=== PATIENT | male | born 1950 | race Caucasian/White ===

== ENCOUNTER → 2019-01-26 | Outpatient (CLI) | payer MEDICARE ==
[2019-01-26 12:29] LABS: BUN 21 mg/dl (7-24); CHLORIDE 108 mmol/L (98-107); CHOLESTEROL 141 mg/dL (<200); CREATININE 1.11 mg/dL (0.70-1.30); HDL CHOLESTEROL 71 mg/dl (40-60); LDL CHOLESTEROL 52 mg/dL (9-159); POTASSIUM 3.8 mmol/L (3.5-5.1); SODIUM 143 mmol/L (136-145); TRIGLYCERIDES 90 mg/dl (<150); VLDL CHOLESTEROL 18 mg/dL (6-40)
== END | disposition home or self-care (01) ==
LOC: LAB 11:07
PROVIDERS: Family Medicine
DX: E11.9 Type 2 diabetes mellitus without complications (principal); E78.2 Mixed hyperlipidemia; C61 Malignant neoplasm of prostate; I10 Essential (primary) hypertension

== ENCOUNTER → 2020-06-05 | Outpatient (CLI) | payer MEDICARE ==
[2020-06-05 12:02] LABS: BUN 20 mg/dl (7-24); CHLORIDE 109 mmol/L (98-107); CHOLESTEROL 140 mg/dL (<200); CREATININE 1.19 mg/dL (0.70-1.30); HDL CHOLESTEROL 76 mg/dl (40-60); LDL CHOLESTEROL 48 mg/dL (9-159); POTASSIUM 3.4 mmol/L (3.5-5.1); SODIUM 143 mmol/L (136-145); TRIGLYCERIDES 78 mg/dl (<150); VLDL CHOLESTEROL 16 mg/dL (6-40)
== END | disposition home or self-care (01) ==
LOC: LAB 10:32
PROVIDERS: ATTEND Family Medicine
DX: C61 Malignant neoplasm of prostate (principal); E78.2 Mixed hyperlipidemia; E11.9 Type 2 diabetes mellitus without complications

== ENCOUNTER → 2021-07-23 | Outpatient (CLI) | payer MEDICARE ==
[2021-07-23 12:16] LABS: BASO % 0.8 % (0.0-1.0); EOS # 0.2 10*3/uL (0.0-0.4); EOS % 3.8 % (1.0-4.0); LYMPH # 1.1 10*3/uL (1.3-4.4); LYMPH % 22.5 % (27.0-41.0); MEAN CELL VOLUME 90.7 fl (80.0-94.0); MEAN CORPUSCULAR HGB CONC 33.1 g/dl (33.0-37.0); MEAN PLATELET VOLUME 11.3 fl (9.6-12.3); MONO # 0.4 10*3/uL (0.1-1.0); MONO % 8.7 % (3.0-9.0); PLATELET COUNT AUTOMATED 143 10*3/uL (130-400); RED BLOOD COUNT 4.63 10*6/uL (4.50-5.90); RED CELL DISTRI WIDTH 13.2 % (0-14.5); WHITE BLOOD COUNT 4.7 10*3/uL (4.8-10.8)
[2021-07-23 12:32] LABS: BUN 21 mg/dl (7-24); CHLORIDE 106 mmol/L (98-107); CHOLESTEROL 124 mg/dL (<200); CREATININE 1.22 mg/dL (0.70-1.30); POTASSIUM 3.7 mmol/L (3.5-5.1); SODIUM 141 mmol/L (136-145); TRIGLYCERIDES 82 mg/dl (<150)
[2021-07-23 12:41] LABS: LDL CHOLESTEROL 34 mg/dL (9-159)
== END | disposition home or self-care (01) ==
LOC: LAB 11:57
PROVIDERS: ATTEND Family Medicine
DX: E11.9 Type 2 diabetes mellitus without complications (principal); C61 Malignant neoplasm of prostate; E70.0 Classical phenylketonuria

== ENCOUNTER → 2022-07-29 | Outpatient (CLI) | payer MEDICARE ==
[2022-07-29 13:20] LABS: BUN 16 mg/dl (9-23); CHLORIDE 105 mmol/L (98-107); CHOLESTEROL 125 mg/dL (<200); LDL CHOLESTEROL 41 mg/dL (9-159); THYROID STIM HORMONE (HS) 2.835 uIU/ml (0.550-4.780); TRIGLYCERIDES 68 mg/dl (<150)
== END | disposition home or self-care (01) ==
LOC: LAB 12:27
PROVIDERS: ATTEND Family Medicine
DX: C61 Malignant neoplasm of prostate (principal); E11.9 Type 2 diabetes mellitus without complications; I10 Essential (primary) hypertension

== ENCOUNTER 2023-05-04 19:44 | Emergency (ER) | payer MEDICARE ==
[~2023-05-04] VITALS: Ht 180.3 cm; Wt 65.8 kg
[2023-05-04 19:56] VITALS: BP 141/70
[2023-05-04] MEDS ORDERED: Tdap Vaccine 0.5 ML SYR (Adult Vaccine) IM ONE (20:25)
[2023-05-04] MEDS ORDERED: Bacitracin Zinc 14 GM TUBE T ONE (20:25)
[2023-05-04] MEDS ORDERED: CEPHALEXIN500 M1 PO (21:00)
[2023-05-04] MEDS ORDERED: ACETAMINOPHEN 325 MG TAB PO ONE (21:05)
[2023-05-04] MEDS ORDERED: CEPHALEXIN 500 MG CAP PO ONE (21:05)
== END 2023-05-04 21:26 | disposition home or self-care (01) ==
LOC: ED 19:44
DX: S40.021A Contusion of right upper arm, initial encounter (principal); S50.811A Abrasion of right forearm, initial encounter; Z91.041 Radiographic dye allergy status; Z91.040 Latex allergy status; W18.09XA Striking against other object with subsequent fall, initial encounter; Y93.89 Activity, other specified; Y92.039 Unspecified place in apartment as the place of occurrence of the external cause; Y99.8 Other external cause status

== ENCOUNTER → 2023-07-05 | Outpatient (CLI) | payer MEDICARE, MEDICAID ==
[~2023-07-05] MED LIST: CEPHALEXIN500 M1 PO
[2023-07-05 12:52] LABS: BUN 22 mg/dl (9-23); CHLORIDE 105 mmol/L (98-107); CHOLESTEROL 161 mg/dL (<200); LDL CHOLESTEROL 74 mg/dL (9-159); POTASSIUM 3.6 mmol/L (3.4-5.1); TRIGLYCERIDES 61 mg/dl (<150)
== END | disposition home or self-care (01) ==
LOC: LAB 11:54
PROVIDERS: ATTEND Family Medicine
DX: E11.9 Type 2 diabetes mellitus without complications (principal); I10 Essential (primary) hypertension; C61 Malignant neoplasm of prostate

== ENCOUNTER 2024-03-02 14:39 | Emergency (ER) | payer MEDICARE, MEDICAID ==
[~2024-03-02] VITALS: Ht 180.3 cm
[2024-03-02 15:03] VITALS: BP 131/75
[2024-03-02] MEDS ORDERED: ZESTORETIC 10-1 EACH PO (15:14)
[2024-03-02] MEDS ORDERED: METFORMIN HYDR500 MG PO ×2 (15:14→15:21)
[2024-03-02] MEDS ORDERED: POTASSIUM CHLO20 ME4 PO (15:14)
[2024-03-02] MEDS ORDERED: SIMVASTATIN40 MG PO ×2 (15:14→15:21)
[2024-03-02] MEDS ORDERED: POTASSIUM CHLO20 ME3 PO (15:21)
[2024-03-02] MEDS ORDERED: LISINOPRIL-HCT1 EACH PO (15:21)
== END 2024-03-02 15:22 | disposition home or self-care (01) ==
LOC: ED 14:39
DX: Z76.0 Encounter for issue of repeat prescription (principal); I10 Essential (primary) hypertension; E11.9 Type 2 diabetes mellitus without complications; E78.5 Hyperlipidemia, unspecified; Z91.041 Radiographic dye allergy status; Z91.040 Latex allergy status

== ENCOUNTER 2024-08-23 17:46 | Inpatient (IN) | payer MEDICARE, MEDICAID ==
[~2024-08-23] VITALS: Ht 177.8 cm; Wt 46.0 kg
[~2024-08-23 17:46] MED LIST changes: +LACTULOSE10 GM/151 PO; +LISINOPRIL-HCT1 EACH PO; +LUBIPROSTONE24 MCG PO; +METFORMIN HYDR500 MG PO; +POTASSIUM CHLO20 ME3 PO; +POTASSIUM CHLO20 ME4 PO; +SIMVASTATIN40 MG PO; +VITAMIN B121000 MC3 PO; +VITAMIN D31250 MC2 PO; +ZESTORETIC 10-1 EACH PO
[2024-08-23 20:45] VITALS: BP 93/63
[2024-08-23] MEDS ORDERED: ACETAMINOPHEN 325 MG TAB PO PRN (21:40)
[2024-08-23] MEDS ORDERED: MG-AL HYDROXIDE/SIMETICONE 30 ML UDC PO PRN (21:40)
[2024-08-23] MEDS ORDERED: Menthol/Zinc Oxide 4 GM THIN T PRN (21:45)
[2024-08-23] MEDS ORDERED: LORazepam 1 MG TAB PO PRN (22:00)
[2024-08-23] MEDS ORDERED: Mirtazapine 15 MG TAB PO SCH (22:00)
[2024-08-23] MEDS ORDERED: hydrOXYzine hydrochloride 50 MG/ML VIAL IM PRN (22:05)
[2024-08-24 06:39] LABS: BASO # 0.0 10*3/uL (0.0-0.1); BASO % 0.2 % (0.0-1.0); EOS # 0.0 10*3/uL (0.0-0.4); EOS % 0.7 % (1.0-4.0); MEAN CELL VOLUME 94.8 fl (80.0-94.0); MEAN CORPUSCULAR HGB 31.7 pg (27.0-31.0); MEAN PLATELET VOLUME 11.6 fl (9.6-12.3); MONO # 0.4 10*3/uL (0.1-1.0); MONO % 7.1 % (3.0-9.0); NEUT # 5.0 10*3/uL (2.3-7.9); NEUT % 82.7 % (47.0-73.0); NUCLEATED RED BLOOD CELL 0.0 % (0.0-0.0); NUCLEATED RED BLOOD CELL 0.0 10*3/uL (0.0-0.0); PLATELET COUNT AUTOMATED 144 10*3/uL (130-400); RED CELL DISTRI WIDTH 13.2 % (0-14.5)
[2024-08-24 07:36] LABS: BUN 36 mg/dl (9-23); LDL CHOLESTEROL 160 mg/dL (9-159); SGPT/ALT 13 U/L (5-49)
[2024-08-24 08:00] VITALS: BP 113/67
[2024-08-24 08:19] LABS: VITAMIN D, 25-HYDROXY 20.3 ng/mL (30-100)
[2024-08-24] MEDS ORDERED: ERGOCALCIFEROL 50,000 IU CAP (1.25 MG) PO SCH (09:00)
[2024-08-24] MEDS ORDERED: LACTULOSE 20 GM/30 ML UDC PO SCH (10:00)
[2024-08-24] MEDS ORDERED: CYANOCOBALAMIN 500 MCG TAB PO SCH (10:00)
[2024-08-24 20:00] VITALS: BP 102/59
[2024-08-24] MEDS ORDERED: SIMVASTATIN 20 MG TAB PO SCH (22:00)
[2024-08-25] MEDS ORDERED: FOAM BANDAGE 1 EACH BANDAGE T ONE (02:26)
[2024-08-25 08:00] VITALS: BP 109/66
[2024-08-25] MEDS ORDERED: Rivastigmine Tartrate 4.6 MG/24 HR PATCH T SCH (09:00)
[2024-08-25] MEDS ORDERED: Vitamin D 1,000 IU TAB (25 MCG) PO SCH (09:00)
[2024-08-25 20:00] VITALS: BP 107/61
[2024-08-26 08:00] VITALS: BP 112/59
[2024-08-26 20:00] VITALS: BP 109/60
[2024-08-27 06:37] LABS: BASO # 0.0 10*3/uL (0.0-0.1); BASO % 0.5 % (0.0-1.0); EOS # 0.1 10*3/uL (0.0-0.4); EOS % 1.8 % (1.0-4.0); MEAN CELL VOLUME 97.5 fl (80.0-94.0); MEAN CORPUSCULAR HGB 32.1 pg (27.0-31.0); MEAN PLATELET VOLUME 12.2 fl (9.6-12.3); MONO # 0.7 10*3/uL (0.1-1.0); MONO % 10.0 % (3.0-9.0); NEUT # 4.5 10*3/uL (2.3-7.9); NEUT % 68.2 % (47.0-73.0); NUCLEATED RED BLOOD CELL 0.0 % (0.0-0.0); NUCLEATED RED BLOOD CELL 0.0 10*3/uL (0.0-0.0); PLATELET COUNT AUTOMATED 104 10*3/uL (130-400); RED CELL DISTRI WIDTH 13.2 % (0-14.5)
[2024-08-27 06:55] LABS: BUN 27 mg/dl (9-23); SGPT/ALT 23 U/L (5-49)
[2024-08-27 09:40] VITALS: BP 97/50
[2024-08-27] MEDS ORDERED: BISACODYL 10 MG SUPP R ONE (09:50)
[2024-08-27 20:00] VITALS: BP 113/69
[2024-08-28] MEDS ORDERED: Na Phos, Dibasic/Na Phos, Mo 1 EA BOT R ONE (07:55)
[2024-08-28 08:00] VITALS: BP 123/75
[2024-08-28 20:00] VITALS: BP 110/62
[2024-08-29 08:00] VITALS: BP 102/51
[2024-08-29] MEDS ORDERED: Rivastigmine Tartrate 9.5 MG/24 HR PATCH T SCH (09:00)
[2024-08-29 20:00] VITALS: BP 101/56
[2024-08-30 08:35] VITALS: BP 102/78
[2024-08-30 20:00] VITALS: BP 102/51
[2024-08-31 08:54] VITALS: BP 118/61
[2024-08-31 20:00] VITALS: BP 115/65
[2024-09-01 08:00] VITALS: BP 106/61
[2024-09-01 08:07] LABS: BASO # 0.0 10*3/uL (0.0-0.1); BASO % 0.6 % (0.0-1.0); EOS # 0.1 10*3/uL (0.0-0.4); EOS % 1.9 % (1.0-4.0); MEAN CELL VOLUME 96.8 fl (80.0-94.0); MEAN CORPUSCULAR HGB 32.1 pg (27.0-31.0); MEAN PLATELET VOLUME 9.7 fl (9.6-12.3); MONO # 0.7 10*3/uL (0.1-1.0); MONO % 15.5 % (3.0-9.0); NEUT # 2.7 10*3/uL (2.3-7.9); NEUT % 57.0 % (47.0-73.0); NUCLEATED RED BLOOD CELL 0.0 % (0.0-0.0); NUCLEATED RED BLOOD CELL 0.0 10*3/uL (0.0-0.0); PLATELET COUNT AUTOMATED 156 10*3/uL (130-400); RED CELL DISTRI WIDTH 13.5 % (0-14.5)
[2024-09-01 08:38] LABS: BUN 18 mg/dl (9-23); SGPT/ALT 29 U/L (5-49)
[2024-09-01 20:00] VITALS: BP 124/70
[2024-09-02 08:28] VITALS: BP 116/59
[2024-09-02 20:00] VITALS: BP 129/84
[2024-09-03 07:50] VITALS: BP 130/69
[2024-09-03] MEDS ORDERED: RIVASTIGMINE 13.3 MG/24 HR TDM T SCH (09:00)
[2024-09-03 20:00] VITALS: BP 143/56
[2024-09-04 08:00] VITALS: BP 134/77
[2024-09-04 20:00] VITALS: BP 131/59
[2024-09-05 08:00] VITALS: BP 123/76
[2024-09-05] MEDS ORDERED: MIRTAZAPINE15 M1 PO (09:41)
[2024-09-05] MEDS ORDERED: RIVASTIGMINE1 EAC2 T (09:41)
[2024-09-05] MEDS ORDERED: Vitamin D (1,000 UNI PO ×2 (09:41→10:00)
[2024-09-05] MEDS ORDERED: PHARMASSURE V500 MCG PO (09:41)
[2024-09-05] MEDS ORDERED: LACTULOSE10 GM/151 PO (10:00)
== END 2024-09-05 13:10 | disposition home health service (06) | DRG 885 ==
LOC: 3N 17:46
PROVIDERS: Counselor Professional; ADMIT Psychiatry & Neurology Psychiatry; ATTEND Psychiatry & Neurology Psychiatry
PROC: GZHZZZZ Group Psychotherapy (ICD-10-PCS; principal; 2024-08-25)
PROC: GZ56ZZZ Individual Psychotherapy, Supportive (ICD-10-PCS; 2024-08-25)
DX: F33.2 Major depressive disorder, recurrent severe without psychotic features (principal); E43 Unspecified severe protein-calorie malnutrition; E87.0 Hyperosmolality and hypernatremia; Z68.1 Body mass index [BMI] 19.9 or less, adult; F02.83 Dementia in other diseases classified elsewhere, unspecified severity, with mood disturbance; F02.818 Dementia in other diseases classified elsewhere, unspecified severity, with other behavioral disturbance; F02.84 Dementia in other diseases classified elsewhere, unspecified severity, with anxiety; I95.9 Hypotension, unspecified; E53.8 Deficiency of other specified B group vitamins; R62.7 Adult failure to thrive; E55.9 Vitamin D deficiency, unspecified; E87.6 Hypokalemia; R00.1 Bradycardia, unspecified; L89.151 Pressure ulcer of sacral region, stage 1; I10 Essential (primary) hypertension; G30.9 Alzheimer's disease, unspecified; E78.5 Hyperlipidemia, unspecified; E03.9 Hypothyroidism, unspecified; F17.210 Nicotine dependence, cigarettes, uncomplicated; E11.9 Type 2 diabetes mellitus without complications; Z79.899 Other long term (current) drug therapy; Z79.01 Long term (current) use of anticoagulants; Z88.8 Allergy status to other drugs, medicaments and biological substances; Z79.2 Long term (current) use of antibiotics; Z78.9 Other specified health status

== ENCOUNTER 2024-11-11 14:51 | Inpatient (IN) | payer MEDICARE, MEDICAID ==
[~2024-11-11] VITALS: Ht 180.3 cm; Wt 66.7 kg
[~2024-11-11 14:51] MED LIST changes: +MIRTAZAPINE15 M1 PO; +PHARMASSURE V500 MCG PO; +RIVASTIGMINE1 EAC2 T; +Vitamin D (1,000 UNI PO
[2024-11-11 15:02] VITALS: BP 121/63
[2024-11-11] MEDS ORDERED: SODIUM CHLORIDE 0.9% 1,000 ML IV ONE (15:15)
[2024-11-11 15:19] LABS: BASO # 0.0 10*3/uL (0.0-0.1); BASO % 0.8 % (0.0-1.0); EOS # 0.1 10*3/uL (0.0-0.4); EOS % 1.8 % (1.0-4.0); MEAN CELL VOLUME 100.5 fl (80.0-94.0); MEAN CORPUSCULAR HGB 31.8 pg (27.0-31.0); MEAN PLATELET VOLUME 10.2 fl (9.6-12.3); MONO # 0.6 10*3/uL (0.1-1.0); MONO % 12.0 % (3.0-9.0); NEUT # 3.1 10*3/uL (2.3-7.9); NEUT % 61.8 % (47.0-73.0); NUCLEATED RED BLOOD CELL 0.0 % (0.0-0.0); NUCLEATED RED BLOOD CELL 0.0 10*3/uL (0.0-0.0); PLATELET COUNT AUTOMATED 150 10*3/uL (130-400); RED CELL DISTRI WIDTH 13.5 % (0-14.5)
[2024-11-11 15:39] LABS: BUN 32 mg/dl (9-23)
[2024-11-11] MEDS ORDERED: ceFAZolin sodium/sodium chlor 10 ML IV ONE (16:00)
[2024-11-11] MEDS ORDERED: BISACODYL 10 MG SUPP R PRN (17:20)
[2024-11-11] MEDS ORDERED: Ondansetron Hydrochloride 4 MG/2 ML VIAL IV PRN (17:20)
[2024-11-11] MEDS ORDERED: Acetaminophen/Hydrocodone 5 MG/325 MG TABLET PO PRN (17:20)
[2024-11-11] MEDS ORDERED: ACETAMINOPHEN 325 MG TAB PO PRN (17:20)
[2024-11-11] MEDS ORDERED: ACETAMINOPHEN 650 MG SUPP R PRN (17:20)
[2024-11-11] MEDS ORDERED: BISACODYL 5 MG TAB PO PRN (17:20)
[2024-11-11] MEDS ORDERED: TEMAZEPAM 15 MG CAP PO PRN (17:20)
[2024-11-11 17:50] VITALS: BP 127/63
[2024-11-11] MEDS ORDERED: BARIUM SULFATE 2% 450 ML BOT PO SCH (18:20)
[2024-11-11 20:00] VITALS: BP 131/54
[2024-11-12] VITALS: BP 107/57
[2024-11-12] MEDS ORDERED: BARIUM SULFATE 2% 450 ML BOT PO SCH (05:00)
[2024-11-12 06:42] LABS: BASO # 0.0 10*3/uL (0.0-0.1); BASO % 0.4 % (0.0-1.0); EOS # 0.1 10*3/uL (0.0-0.4); EOS % 1.1 % (1.0-4.0); MEAN CELL VOLUME 99.0 fl (80.0-94.0); MEAN CORPUSCULAR HGB 31.3 pg (27.0-31.0); MEAN PLATELET VOLUME 11.3 fl (9.6-12.3); MONO # 0.5 10*3/uL (0.1-1.0); MONO % 9.7 % (3.0-9.0); NEUT # 3.8 10*3/uL (2.3-7.9); NEUT % 71.2 % (47.0-73.0); NUCLEATED RED BLOOD CELL 0.0 % (0.0-0.0); NUCLEATED RED BLOOD CELL 0.0 10*3/uL (0.0-0.0); PLATELET COUNT AUTOMATED 155 10*3/uL (130-400); RED CELL DISTRI WIDTH 13.4 % (0-14.5)
[2024-11-12 07:06] LABS: BUN 26 mg/dl (9-23); FREE T4 1.12 ng/dl (0.89-1.76); LDL CHOLESTEROL 76 mg/dL (9-159); SGPT/ALT 54 U/L (5-49)
[2024-11-12 07:56] LABS: VITAMIN D, 25-HYDROXY 32.6 ng/mL (30-100)
[2024-11-12 08:00] VITALS: BP 123/64
[2024-11-12] MEDS ORDERED: FOAM BANDAGE HEEL T ONE (08:08)
[2024-11-12] MEDS ORDERED: FOAM BANDAGE 1 EACH BANDAGE T ONE (08:08)
[2024-11-12] MEDS ORDERED: HEEL PROTECTOR DEVICE ONE (08:09)
[2024-11-12] MEDS ORDERED: ASPIRIN81 M3 PO (09:46)
[2024-11-12 12:00] VITALS: BP 102/58
[2024-11-12 12:14] LABS: BILIRUBIN Negative (Negative); BLOOD Negative (Negative); CLARITY Clear (Clear); COLOR Yellow (Yellow); KETONE Negative (Negative); LEUKO ESTERASE Trace (Negative); NITRITE Negative (Negative); PH 7.0 (4.5-8.0); SPECIFIC GRAVITY 1.020 (1.001-1.030); UROBILINOGEN 1.0 E.U./dl (0.0-1.0)
[2024-11-12 12:35] LABS: BACTERIA TRACE; EPITHELIAL CELLS 0-2; RBC 0-2 rbc/hpf (0-2)
[2024-11-12 16:00] VITALS: BP 117/56
[2024-11-12 20:00] VITALS: BP 94/53
[2024-11-13] VITALS: BP 94/54
[2024-11-13 05:54] LABS: BUN 24 mg/dl (9-23)
[2024-11-13 05:58] LABS: BASO # 0.0 10*3/uL (0.0-0.1); BASO % 0.4 % (0.0-1.0); EOS # 0.1 10*3/uL (0.0-0.4); EOS % 1.2 % (1.0-4.0); MEAN CELL VOLUME 97.8 fl (80.0-94.0); MEAN CORPUSCULAR HGB 31.8 pg (27.0-31.0); MEAN PLATELET VOLUME 11.2 fl (9.6-12.3); MONO # 0.4 10*3/uL (0.1-1.0); MONO % 7.8 % (3.0-9.0); NEUT # 3.6 10*3/uL (2.3-7.9); NEUT % 73.2 % (47.0-73.0); NUCLEATED RED BLOOD CELL 0.0 % (0.0-0.0); NUCLEATED RED BLOOD CELL 0.0 10*3/uL (0.0-0.0); PLATELET COUNT AUTOMATED 144 10*3/uL (130-400); RED CELL DISTRI WIDTH 13.4 % (0-14.5)
[2024-11-13] MEDS ORDERED: SODIUM CHLORIDE 0.9% 1,000 ML IV ONE (07:30)
[2024-11-13 08:00] VITALS: BP 124/67
[2024-11-13] MEDS ORDERED: ASPIRIN, CHEWABLE 81 MG TAB PO SCH (10:00)
[2024-11-13] MEDS ORDERED: CYANOCOBALAMIN 500 MCG TAB PO SCH (10:00)
[2024-11-13] MEDS ORDERED: CEPHALEXIN500 M1 PO (11:55)
[2024-11-13 12:00] VITALS: BP 118/63
[2024-11-13] MEDS ORDERED: AMMONIUM LACTATE 12% LOTION T SCH (22:00)
== END 2024-11-13 16:00 | disposition home health service (06) | DRG 602 ==
LOC: ED 14:51 → 4E 16:16 → EDHOLD 16:16 → 4E 16:46
PROVIDERS: Emergency Medicine; ADMIT Internal Medicine; ATTEND Internal Medicine
DX: L03.116 Cellulitis of left lower limb (principal); E43 Unspecified severe protein-calorie malnutrition; J90 Pleural effusion, not elsewhere classified; L03.115 Cellulitis of right lower limb; G30.9 Alzheimer's disease, unspecified; F02.80 Dementia in other diseases classified elsewhere, unspecified severity, without behavioral disturbance, psychotic disturbance, mood disturbance, and anxiety; E11.65 Type 2 diabetes mellitus with hyperglycemia; D53.9 Nutritional anemia, unspecified; E03.9 Hypothyroidism, unspecified; R62.7 Adult failure to thrive; E78.5 Hyperlipidemia, unspecified; I10 Essential (primary) hypertension; Z78.9 Other specified health status; Z88.0 Allergy status to penicillin; Z88.8 Allergy status to other drugs, medicaments and biological substances; Z79.4 Long term (current) use of insulin; Z68.20 Body mass index [BMI] 20.0-20.9, adult

== ENCOUNTER 2024-12-06 18:04 | Emergency (ER) | payer MEDICARE, MEDICAID ==
[~2024-12-06] VITALS: Ht 177.8 cm; Wt 65.8 kg
[~2024-12-06 18:04] MED LIST changes: +ASPIRIN81 M3 PO
[2024-12-06 18:06] VITALS: BP 158/83
[2024-12-06 18:48] LABS: BASO # 0.0 10*3/uL (0.0-0.1); BASO % 0.8 % (0.0-1.0); EOS # 0.0 10*3/uL (0.0-0.4); EOS % 0.8 % (1.0-4.0); MEAN CELL VOLUME 101.3 fl (80.0-94.0); MEAN CORPUSCULAR HGB 31.6 pg (27.0-31.0); MEAN PLATELET VOLUME 10.6 fl (9.6-12.3); MONO # 0.4 10*3/uL (0.1-1.0); MONO % 10.8 % (3.0-9.0); NEUT # 2.5 10*3/uL (2.3-7.9); NEUT % 64.4 % (47.0-73.0); NUCLEATED RED BLOOD CELL 0.0 % (0.0-0.0); NUCLEATED RED BLOOD CELL 0.0 10*3/uL (0.0-0.0); PLATELET COUNT AUTOMATED 131 10*3/uL (130-400); RED CELL DISTRI WIDTH 13.3 % (0-14.5)
[2024-12-06 19:13] LABS: BUN 31 mg/dl (9-23)
[2024-12-06 19:31] LABS: ETHYL ALCOHOL < 3.0 mg/dl (<3)
[2024-12-06 19:33] LABS: BILIRUBIN Negative (Negative); BLOOD Negative (Negative); CLARITY Clear (Clear); COLOR Yellow (Yellow); KETONE Negative (Negative); LEUKO ESTERASE Negative (Negative); NITRITE Negative (Negative); PH 5.0 (4.5-8.0); SPECIFIC GRAVITY 1.015 (1.001-1.030); UROBILINOGEN 0.2 E.U./dl (0.0-1.0)
[2024-12-06 19:52] LABS: URINE AMPHETAMINES Negative (1000ng/ml); URINE BARBITURATES Negative (200ng/ml); URINE BENZODIAZEPINES Negative (200ng/ml); URINE CANNABINOIDS (THC) Negative (50ng/ml); URINE COCAINE Negative (300ng/ml); URINE METHADONE Negative (300ng/ml); URINE OPIATES Negative (300ng/ml); URINE PHENCYCLIDINE Negative (25ng/ml)
[2024-12-06 20:31] LABS: MUCOUS 1+
== END 2024-12-06 23:56 ==
LOC: ED 18:04 → EDHOLD 18:25 → ED 18:25
PROVIDERS: Emergency Medicine
DX: R62.7 Adult failure to thrive (principal); N17.9 Acute kidney failure, unspecified; F32.9 Major depressive disorder, single episode, unspecified; E87.0 Hyperosmolality and hypernatremia; D61.818 Other pancytopenia; F03.90 Unspecified dementia, unspecified severity, without behavioral disturbance, psychotic disturbance, mood disturbance, and anxiety; E11.9 Type 2 diabetes mellitus without complications; I10 Essential (primary) hypertension; E78.5 Hyperlipidemia, unspecified; Z88.0 Allergy status to penicillin; Z91.041 Radiographic dye allergy status; Z79.82 Long term (current) use of aspirin; Z79.84 Long term (current) use of oral hypoglycemic drugs; Z79.899 Other long term (current) drug therapy; Z87.442 Personal history of urinary calculi; Z98.890 Other specified postprocedural states; Z87.891 Personal history of nicotine dependence; Z68.20 Body mass index [BMI] 20.0-20.9, adult

== ENCOUNTER 2024-12-06 23:06 | Inpatient (IN) | payer MEDICARE, MEDICAID ==
[~2024-12-06] VITALS: Ht 178 cm; Wt 54.1 kg
[2024-12-06] MEDS ORDERED: LORazepam 1 MG TAB PO PRN (23:15)
[2024-12-06] MEDS ORDERED: Water, Sterile 10 ML VIAL IM PRN (23:15)
[2024-12-06] MEDS ORDERED: hydrOXYzine hydrochloride 50 MG/ML VIAL IM PRN (23:15)
[2024-12-06] MEDS ORDERED: MG-AL HYDROXIDE/SIMETICONE 30 ML UDC PO PRN (23:20)
[2024-12-06] MEDS ORDERED: ACETAMINOPHEN 325 MG TAB PO PRN (23:20)
[2024-12-06] MEDS ORDERED: Menthol/Zinc Oxide 4 GM THIN T PRN (23:25)
[2024-12-07 00:39] VITALS: BP 139/64
[2024-12-07 06:08] LABS: BASO # 0.0 10*3/uL (0.0-0.1); BASO % 0.6 % (0.0-1.0); EOS # 0.0 10*3/uL (0.0-0.4); EOS % 0.6 % (1.0-4.0); MEAN CELL VOLUME 99.5 fl (80.0-94.0); MEAN CORPUSCULAR HGB 31.7 pg (27.0-31.0); MEAN PLATELET VOLUME 10.9 fl (9.6-12.3); MONO # 0.5 10*3/uL (0.1-1.0); MONO % 9.8 % (3.0-9.0); NEUT # 3.6 10*3/uL (2.3-7.9); NEUT % 70.9 % (47.0-73.0); NUCLEATED RED BLOOD CELL 0.0 % (0.0-0.0); NUCLEATED RED BLOOD CELL 0.0 10*3/uL (0.0-0.0); PLATELET COUNT AUTOMATED 135 10*3/uL (130-400); RED CELL DISTRI WIDTH 13.4 % (0-14.5)
[2024-12-07 06:51] LABS: BUN 31 mg/dl (9-23); LDL CHOLESTEROL 78 mg/dL (9-159); SGPT/ALT 230 U/L (5-49)
[2024-12-07 07:00] LABS: VALPROIC ACID (DEPAKENE) < 3.0 ug/ml (50-100)
[2024-12-07 08:04] LABS: VITAMIN D, 25-HYDROXY 40.4 ng/mL (30-100)
[2024-12-07 08:06] VITALS: BP 133/83
[2024-12-07] MEDS ORDERED: Rivastigmine Tartrate 4.6 MG/24 HR PATCH T SCH (09:00)
[2024-12-07] MEDS ORDERED: ASPIRIN ENTERIC COATED 81 MG TAB PO SCH (09:00)
[2024-12-07 20:00] VITALS: BP 112/52
[2024-12-07] MEDS ORDERED: clomiPRAMINE Hydrochloride 25 MG CAP PO SCH (21:00)
[2024-12-07] MEDS ORDERED: Mirtazapine 15 MG TAB PO SCH (21:00)
[2024-12-07] MEDS ORDERED: risperiDONE 0.5 MG TAB PO SCH (21:00)
[2024-12-08 07:54] VITALS: BP 128/64
[2024-12-08] MEDS ORDERED: Rivastigmine Tartrate 4.6 MG/24 HR PATCH T ONE (08:54)
[2024-12-08 20:00] VITALS: BP 105/53
[2024-12-09 06:19] LABS: BUN 30 mg/dl (9-23)
[2024-12-09 08:00] VITALS: BP 122/65
[2024-12-09 20:00] VITALS: BP 106/51
[2024-12-09] MEDS ORDERED: clomiPRAMINE Hydrochloride 25 MG CAP PO SCH (21:00)
[2024-12-10 08:00] VITALS: BP 133/71
[2024-12-10] MEDS ORDERED: LIDOCAINE 1 EA PATCH T SCH (09:00)
[2024-12-10] MEDS ORDERED: Rivastigmine Tartrate 9.5 MG/24 HR PATCH T SCH (09:00)
[2024-12-10 20:12] VITALS: BP 147/78
[2024-12-11 08:27] VITALS: BP 129/71
[2024-12-11 20:00] VITALS: BP 128/65
[2024-12-12 08:33] VITALS: BP 130/73
[2024-12-12] MEDS ORDERED: FUROSEMIDE 40 MG TAB PO SCH (09:00)
[2024-12-12 20:00] VITALS: BP 135/71
[2024-12-12] MEDS ORDERED: clomiPRAMINE Hydrochloride 25 MG CAP PO SCH (21:00)
[2024-12-13 07:13] LABS: BASO # 0.0 10*3/uL (0.0-0.1); BASO % 0.7 % (0.0-1.0); EOS # 0.0 10*3/uL (0.0-0.4); EOS % 1.0 % (1.0-4.0); MEAN CELL VOLUME 97.3 fl (80.0-94.0); MEAN CORPUSCULAR HGB 31.7 pg (27.0-31.0); MEAN PLATELET VOLUME 10.8 fl (9.6-12.3); MONO # 0.5 10*3/uL (0.1-1.0); MONO % 11.1 % (3.0-9.0); NEUT # 2.7 10*3/uL (2.3-7.9); NEUT % 66.2 % (47.0-73.0); NUCLEATED RED BLOOD CELL 0.0 % (0.0-0.0); NUCLEATED RED BLOOD CELL 0.0 10*3/uL (0.0-0.0); PLATELET COUNT AUTOMATED 137 10*3/uL (130-400); RED CELL DISTRI WIDTH 13.2 % (0-14.5)
[2024-12-13 07:44] LABS: BUN 31 mg/dl (9-23); SGPT/ALT 44 U/L (5-49)
[2024-12-13 08:10] VITALS: BP 127/61
[2024-12-13] MEDS ORDERED: FUROSEMIDE40 MG PO (09:16)
[2024-12-13] MEDS ORDERED: RISPERIDONE0.5 MG PO (09:50)
[2024-12-13] MEDS ORDERED: CLOMIPRAMINE HC50 MG PO (09:50)
[2024-12-13] MEDS ORDERED: RIVASTIGMINE1 EAC1 T (09:50)
== END 2024-12-13 11:30 | DRG 885 ==
LOC: 3N 23:06
PROVIDERS: Counselor Professional; Registered Nurse; ADMIT Psychiatry & Neurology Psychiatry; ATTEND Psychiatry & Neurology Psychiatry
PROC: GZHZZZZ Group Psychotherapy (ICD-10-PCS; principal; 2024-12-08)
PROC: GZ56ZZZ Individual Psychotherapy, Supportive (ICD-10-PCS; 2024-12-08)
DX: F33.3 Major depressive disorder, recurrent, severe with psychotic symptoms (principal); E43 Unspecified severe protein-calorie malnutrition; F02.82 Dementia in other diseases classified elsewhere, unspecified severity, with psychotic disturbance; F02.83 Dementia in other diseases classified elsewhere, unspecified severity, with mood disturbance; E87.0 Hyperosmolality and hypernatremia; Z68.1 Body mass index [BMI] 19.9 or less, adult; D53.9 Nutritional anemia, unspecified; G30.9 Alzheimer's disease, unspecified; D72.810 Lymphocytopenia; E78.2 Mixed hyperlipidemia; E53.8 Deficiency of other specified B group vitamins; E55.9 Vitamin D deficiency, unspecified; L89.159 Pressure ulcer of sacral region, unspecified stage; S80.822A Blister (nonthermal), left lower leg, initial encounter; I10 Essential (primary) hypertension; R00.1 Bradycardia, unspecified; F42.9 Obsessive-compulsive disorder, unspecified; E03.9 Hypothyroidism, unspecified; E11.9 Type 2 diabetes mellitus without complications; F17.210 Nicotine dependence, cigarettes, uncomplicated; Z88.0 Allergy status to penicillin; Z88.8 Allergy status to other drugs, medicaments and biological substances; Z78.9 Other specified health status; X58.XXXA Exposure to other specified factors, initial encounter; Y93.89 Activity, other specified; Y92.89 Other specified places as the place of occurrence of the external cause; Y99.8 Other external cause status